=== PATIENT | female | born 1990 | race Two or more races ===

== ENCOUNTER 2020-12-17 09:09 | Outpatient (CLI) | payer OTHER | END 2020-12-17 09:23 | disposition home or self-care (01) | LOC: SONOGRAMA 09:09 → MAMO-SONO 10:45 | PROVIDERS: ATTEND Obstetrics & Gynecology | DX: N84.0 Polyp of corpus uteri (principal) ==

== ENCOUNTER 2022-01-06 10:00 | Outpatient (CLI) | payer OTHER | END 2022-01-06 10:33 | disposition home or self-care (01) | LOC: SONOGRAMA 10:00 | PROVIDERS: ATTEND Obstetrics & Gynecology | DX: N84.0 Polyp of corpus uteri (principal) ==